=== PATIENT | female | born 1950 | race Caucasian/White ===

== ENCOUNTER 2023-04-24 06:10 | Inpatient (IN) | payer MEDICARE, OTHER, SELFPAY ==
--- NOTE | 2023-03-03 11:39 | CM ---
Addendum entered by Brandy Tate 03/31/23 11:54:
Patient's surgery date has been changed to 04/24/23.
Original Note:
Patient is scheduled for an elective R TKR on 04/03/23. Spoke with patient prior to surgery via telephone. Introduced role of Orthopedic Navigator. Patient reports that she lives alone in an apartment at [facility] (one floor, no steps to enter).
She currently functions independently and uses a cane. She has no other DME and has never had VN services. She does not drive and uses [employer] for transportation needs. PCP is Jorje Monzon.
Discussed orthopedic program and post surgical plans. Reviewed anticipated length of stay and that goal is for her to return home at discharge. Also reviewed outpatient PT. Patient is in agreement with tentative plan and states that her friend will
stay with her initially. She will not have transportation for outpatient PT and will need VN services initially.
Patient will complete online education.
Plan: Orthopedic Navigator will remain available to assist with the care of patient and will reassess discharge needs after surgery.
[2023-03-12 14:13] VITALS: BMI 33.2
[2023-03-12 14:28] LABS: Hematocrit 38.8 % (37.0-47.0); Hemoglobin 13.6 g/dL (12.0-16.0); Mean Corp Hgb Conc. 35.1 g/dL (33.0-37.0); Mean Corpuscular Hgb 31.3 pg (27.0-31.0); Mean Corpuscular Volume 89.4 fL (81.0-99.0); Mean Platelet Volume 10.4 fL (7.4-10.4); Platelet Count 219 10^3/uL (130-400); Red Blood Cell Count 4.34 10^6/uL (4.20-5.40); Red Cell Dist. Width 12.2 % (11.5-14.5); White Blood Cell Count 6.4 10^3/uL (4.8-10.8)
[2023-03-12 14:42] LABS: ALT (SGPT) 26 U/L (0-35); AST (SGOT) 30 U/L (14-36); Albumin 4.2 g/dl (3.5-5.0); Alkaline Phosphatase 78 U/L (38-126); Blood Urea Nitrogen 16 mg/dl (7-17); Carbon Dioxide 26 mmol/L (22-30); Chloride 106 mmol/L (98-107); Estimated Creatinine Clearance 74 ml/min; Glucose 102 mg/dl (70-99); Potassium 4.2 mmol/L (3.5-5.1); Sodium 135 mmol/L (135-145); Total Bilirubin 0.8 mg/dl (0.2-1.3); Total Protein 6.6 g/dl (6.3-8.2); eGFR > 60.00
[2023-03-12 15:49] VITALS: BMI 33.2
[2023-03-13 08:51] LABS: Glycohemoglobin (HgbA1c) 5.7 % (4.0-5.6)
--- NOTE | 2023-04-15 10:34 | W.PN.UPDATE ---
Update Note
Progress Note Update
BP 196/112--advised ER and stroke risk--she refused this option. Provided her with water and encouraged her to take her Clonidine but she again refused.
[2023-04-24] VITALS (21 sets, daily range): BP systolic 116–194; BP diastolic 64–106; PULSE 68–71; O2SAT 97; BMI 33.2
[2023-04-24] MEDS: TYLENOL 650 MG PO ×5 (06:36→23:01)
[2023-04-24] MEDS: NORMOSOL-R 1000 IV ×2 (06:36→09:45)
[2023-04-24] MEDS: CELEBREX 200 MG PO (06:36)
[2023-04-24] MEDS: ROXICODONE 5 MG PO (09:49)
[2023-04-24] MEDS: TYLENOL PO ×2 (12:31→15:09)
--- NOTE | 2023-04-24 12:34 | SUR.PHASEI ---
Lunch relief at 1535. Messi rico RN BSN.
[2023-04-24] MEDS: ANCEF 5 IV ×2 (14:45→22:53)
[2023-04-24] MEDS: ULTRAM PO (15:08)
--- NOTE | 2023-04-24 15:19 | W.PN.UPDATE ---
Update Note
Progress Note Update
Patient doing well postop. VSS. Has been OOB. Pain controlled. Pulm: nonlabored. CV: regular. RLE: NVI distally. Calf soft. Dressing with minimal drainage. Postop xray as expected. Plan for discharge tomorrow after PT with home PT. ASA
for DVT prophylaxis.
[2023-04-24] MEDS: ASPIRIN 325 MG PO (17:24)
[2023-04-24] MEDS: ULTRAM 50 MG PO ×2 (17:24→22:54)
--- NOTE | 2023-04-24 17:38 | PTCARENOTE ---
Received patient from PACU around 1315 via bed in stable condition. Patient oriented to unit. Neurovascular checks wnl. Pain controlled. VS stable. Call vincent in reach.
[2023-04-24] MEDS: COLACE 100 MG PO (19:30)
[2023-04-24] MEDS: BACTROBAN 2% OINTMENT 1 APPLIC NASAL (19:30)
[2023-04-24] MEDS: COREG 25 MG PO (19:31)
[2023-04-24] MEDS: TORADOL 15 MG IV (19:32)
[2023-04-24] MEDS: DECADRON 4 MG PO (19:33)
--- NOTE | 2023-04-24 19:55 | PTCARENOTE ---
Nurse did 1900 vitals.
[2023-04-24 21:18] LABS: Glucose - Point of Care 227 mg/dl (70-99)
[2023-04-24] MEDS: PEPCID 20 MG PO (22:54)
[2023-04-24] MEDS: NEURONTIN 300 MG PO (22:54)
--- NOTE | 2023-04-25 | PTCARENOTE ---
Nurse did 2300 vitals.
[2023-04-25 03:50] VITALS: BP 173/92
[2023-04-25] MEDS: TYLENOL PO (03:55)
[2023-04-25] MEDS: TORADOL 15 MG IV (07:13)
--- NOTE | 2023-04-25 07:13 | W.DS.TRANS ---
DC Summary - Sales Planning Analyst
-
Discharge Instructions:
Discharge Diagnosis/Procedures R TKA Dr. Rodriguez 04/24/23
Diet Diabetic, Carb Controlled
Activity With Walker
Driving Restrictions No driving
Bathing Restrictions OK to Shower
Other Services VN,PT
Instructions:
Stand-Alone Forms: Total Hip/Knee Replacement D/C
Changes to Home Medications: Yes
Discharge Medications:
DC Medications w/original date entered in [email or web address]
biotin 5,000 mcg chewable tablet 5,000 mcg PO DAILY Supplement 03/10/23
clonidine HCl 0.1 mg tablet 0.1 mg PO PRN PRN SBP>175 03/10/23
losartan 100 mg tablet 100 mg PO DAILY Blood Pressure 03/10/23
tgokzerfubfo-zwceamfh-vpvpqp tablet (Multivitamin 50 Plus tablet) 1 tab PO DAILY Supplement 03/10/23
naproxen sodium 220 mg tablet 220 mg PO DAILYPRN PRN pain 03/10/23
mupirocin 2 % topical ointment 1 applic intranasal BID #1 tube 03/12/23
carvedilol 25 mg tablet 25 mg PO BID Blood Pressure 04/10/23
acetaminophen 325 mg capsule (Tylenol) 650 mg PO QID #0 caps 04/25/23
aspirin 325 mg tablet 325 mg PO DAILY blood clot prevention #1 tab 04/25/23
celecoxib 200 mg capsule 200 mg PO DAILY anti-inflammatory #14 caps 04/25/23
dexamethasone 4 mg tablet 4 mg PO BID inflammation #6 tabs 04/25/23
docusate sodium 100 mg capsule (Colace) 100 mg PO BID stool softner #1 cap 04/25/23
famotidine 20 mg tablet 20 mg PO HS GI prophylaxis #30 tabs 04/25/23
gabapentin 300 mg capsule 300 mg PO HS sleep/pain #10 caps 04/25/23
magnesium hydroxide 400 mg/5 mL oral suspension (Milk of Magnesia) 30 ml PO HS PRN Constipation #1 mL 04/25/23
ondansetron 4 mg disintegrating tablet 4 mg PO Q6H PRN n/v #20 tabs 04/25/23
oxycodone 5 mg tablet 5 - 10 mg PO Q6HPRN PRN 1 tab moderate-2 tabs severe pain #30 tabs 04/25/23
sennosides 8.6 mg tablet (Senokot) 17.2 mg PO BID laxative #2 tabs 04/25/23
Home Medication Changes
aspirin 325 mg tablet 325 mg PO DAILY blood clot prevention #1 tab 04/25/23
celecoxib 200 mg capsule 200 mg PO DAILY anti-inflammatory #14 caps 04/25/23
dexamethasone 4 mg tablet 4 mg PO BID inflammation #6 tabs 04/25/23
famotidine 20 mg tablet 20 mg PO HS GI prophylaxis #30 tabs 04/25/23
gabapentin 300 mg capsule 300 mg PO HS sleep/pain #10 caps 04/25/23
ondansetron 4 mg disintegrating tablet 4 mg PO Q6H PRN n/v #20 tabs 04/25/23
oxycodone 5 mg tablet 5 - 10 mg PO Q6HPRN PRN 1 tab moderate-2 tabs severe pain #30 tabs 04/25/23
Pending Results: No
[2023-04-25] MEDS: COZAAR 75 MG PO (07:14)
[2023-04-25] MEDS: ULTRAM 50 MG PO (07:14)
[2023-04-25] MEDS: TYLENOL 650 MG PO ×2 (07:14→11:45)
[2023-04-25] MEDS: COLACE 100 MG PO (07:14)
[2023-04-25] MEDS: BACTROBAN 2% OINTMENT 1 APPLIC NASAL (07:15)
[2023-04-25] MEDS: CELEBREX 200 MG PO (07:15)
[2023-04-25] MEDS: DECADRON 4 MG PO (07:15)
[2023-04-25] MEDS: ASPIRIN 325 MG PO (07:15)
[2023-04-25] MEDS: COREG 25 MG PO (07:15)
[2023-04-25 07:19] VITALS: BP 161/74
--- NOTE | 2023-04-25 07:29 | W.PN.ORTHO ---
Today's Communication / Plan
-
Plan for discharge home after PT with home PT
Assessment
.
Distal Motor Intact: Yes
Dressing:
Clean, dry and intact.
Assessment:
Doing well postop
Plan
.
Surgery / Date: 04/24/23 right TKA Jennifer
DVT Prophylaxis: Aspirin
Activity:
Out of bed.
PT/OT
Discharge Plan: Home w/ VN
Subjective
.
.:
Patient resting comfortably. Was OOB yesterday. Pain controlled
Vital Signs and Labs
.
Vital Signs and Labs:
Lab Results
03/12/23 13:57
03/12/23 13:57
Temp Pulse Resp BP Pulse Ox
97.8 F 79 18 161/74 96
04/25/23 07:19 04/25/23 07:19 04/25/23 07:19 04/25/23 07:19 04/25/23 07:19
Non-invasive Hgb result: 12.9
Physical Exam
-
Pulm: nonlabored
CV: regular
RLE: able to fully extend right knee. Flexion to 80 degrees. NVI distally. calf soft
[2023-04-25 08:30] VITALS: BP 152/86
--- NOTE | 2023-04-25 08:39 | CM ---
Addendum entered by Brandy Tate 04/25/23 10:00:
Patient did well in therapy. OT is recommending home OT. Discussed with patient who is in agreement. She has no concerns about going home.
VN referral updated with addition of OT and sent to [facility] through [facility].
Original Note:
Reviewed chart and held rounds with PT, OT and nursing. Patient admitted as planned for elective R TKR. Met with patient at bedside. Confirmed information previously obtained for assessment. Also discussed discharge plans. The plan is for patient to
return home at discharge. She will have support from her friends when she goes home but no one will stay with her. She plans to use [employer] to go home (a friend will come to the hospital and ride home with her). Reviewed VN services including start of
care (tentatively 04/25), services to be ordered (PT, SN) and frequency/duration of services. Options list provided and PAC data reviewed. Patient selects [facility].
Patient has a rolling walker, commode and a cane at home.
VN referral was completed and sent to [facility] through [facility] with request for start of care on 04/25. Confirmation received of their ability to accept case. production clerk to fax discharge instructions to [facility] when complete.
Patient will use [facility] pharmacy for discharge prescriptions.
[2023-04-25 09:43] VITALS: BP 145/72; PULSE 70; O2SAT 93
--- NOTE | 2023-04-25 10:32 | W.PN.ORTHO ---
Today's Communication / Plan
-
d/c
Assessment
.
Distal Motor Intact: Yes
Dressing:
Clean, dry and intact.
Assessment:
HTN-accelerated pre and post-op--improved with med adjustments
Plan
.
Surgery / Date: 04/24/23 right TKA Jennifer
DVT Prophylaxis: Aspirin
Activity:
Out of bed.
PT/OT
Discharge Plan: Home w/ VN
Subjective
.
.:
Patient resting comfortably.
Vital Signs and Labs
.
Vital Signs and Labs:
Lab Results
03/12/23 13:57
03/12/23 13:57
Temp Pulse Resp BP Pulse Ox
97.8 F 74 18 152/86 96
04/25/23 07:19 04/25/23 08:30 04/25/23 07:19 04/25/23 08:30 04/25/23 07:19
Non-invasive Hgb result: 12.9
Physical Exam
-
ABDOMEN: Soft, non-tender. No distension. BS+/normal.
EXTREMITIES: strength equal, no calf pain with palpation
PALEOLOGY PROFESSOR: AOx3. No focal deficits. custodian athletic equipment grossly intact
Aquacell intact. dry
== END 2023-04-25 12:59 | disposition home health service (06) | DRG 470 ==
LOC: 2 SOUTH 06:10
PROVIDERS: ADMITTING PHYSICIAN Orthopaedic Surgery; FAMILY PHYSICIAN Nurse Practitioner Adult Health; REFERRING PHYSICIAN Physician Assistant
PROC: 0SRC0J9 Replacement of Right Knee Joint with Synthetic Substitute, Cemented, Open Approach (ICD-10-PCS; 2023-04-24)
DX: M17.11 Unilateral primary osteoarthritis, right knee (principal); I10 Essential (primary) hypertension; E66.9 Obesity, unspecified; E78.5 Hyperlipidemia, unspecified; G47.33 Obstructive sleep apnea (adult) (pediatric); R73.03 Prediabetes; M85.80 Other specified disorders of bone density and structure, unspecified site; Z79.82 Long term (current) use of aspirin; Z91.148 Patient's other noncompliance with medication regimen for other reason; Z68.33 Body mass index [BMI] 33.0-33.9, adult; Z91.199 Patient's noncompliance with other medical treatment and regimen due to unspecified reason; Z87.891 Personal history of nicotine dependence
CPT/HCPCS: 36415; 73560; 80053; 82962; 83036; 85027; 87070; 93005; 97110; 97116; 97162; 97166; 97530; 97535; C1713; C1776

== ENCOUNTER → 2023-05-28 14:39 | Outpatient (REF) | payer MEDICARE, BC, SELFPAY | LOC: DHCBS MAIN 14:39 | PROVIDERS: ATTENDING PHYSICIAN Internal Medicine Interventional Cardiology; FAMILY PHYSICIAN Nurse Practitioner Adult Health | DX: I10 Essential (primary) hypertension (principal) | CPT/HCPCS: 93306 ==

== ENCOUNTER 2023-06-10 09:27 | Outpatient (RCR) | payer MEDICARE, OTHER, SELFPAY | END 2023-06-10 23:59 | disposition home or self-care (01) | LOC: RPT 09:27 | PROVIDERS: ATTENDING PHYSICIAN Student in an Organized Health Care Education/Training Program; FAMILY PHYSICIAN Nurse Practitioner Adult Health | DX: Z47.1 Aftercare following joint replacement surgery (principal); Z73.6 Limitation of activities due to disability; R26.89 Other abnormalities of gait and mobility; Z96.651 Presence of right artificial knee joint | CPT/HCPCS: 97010; 97110; 97161 ==

== ENCOUNTER → 2023-06-11 09:14 | Outpatient (REF) | payer MEDICARE, OTHER, SELFPAY ==
[2023-06-11 11:05] LABS: Glycohemoglobin (HgbA1c) 5.5 % (4.0-5.6)
[2023-06-11 13:36] LABS: ALT (SGPT) 15 U/L (0-35); AST (SGOT) 23 U/L (14-36); Albumin 4.2 g/dl (3.5-5.0); Alkaline Phosphatase 64 U/L (38-126); Blood Urea Nitrogen 16 mg/dl (7-17); Calcium 9.5 mg/dl (8.4-10.2); Carbon Dioxide 25 mmol/L (22-30); Chloride 103 mmol/L (98-107); Glucose 96 mg/dl (70-99); HDL Cholesterol 91 mg/dl; LDL Cholesterol, Calculated 102 mg/dl; Sodium 136 mmol/L (135-145); Total Bilirubin 1.1 mg/dl (0.2-1.3); Total Cholesterol 214 mg/dl (50-199); Total Protein 6.5 g/dl (6.3-8.2); Triglyceride 105 mg/dl (10-149); Very Low Density Lipoprotein 21 mg/dl (0-30); eGFR > 60.00
== END ==
LOC: REG 09:14
PROVIDERS: ATTENDING PHYSICIAN Nurse Practitioner Adult Health
DX: E78.2 Mixed hyperlipidemia (principal); R73.03 Prediabetes; Z01.818 Encounter for other preprocedural examination
CPT/HCPCS: 36415; 80053; 80061; 83036

== ENCOUNTER 2023-06-27 09:16 | Outpatient (RCR) | payer MEDICARE, OTHER, SELFPAY | END 2023-06-27 10:40 | disposition home or self-care (01) | LOC: RPT 09:16 | PROVIDERS: ATTENDING PHYSICIAN Student in an Organized Health Care Education/Training Program; FAMILY PHYSICIAN Nurse Practitioner Adult Health | DX: Z47.89 Encounter for other orthopedic aftercare (principal); Z96.651 Presence of right artificial knee joint; M26.89 Other dentofacial anomalies; Z73.6 Limitation of activities due to disability | CPT/HCPCS: 97010; 97110 ==

== ENCOUNTER → 2023-10-15 09:11 | Outpatient (REF) | payer MEDICARE, OTHER, SELFPAY ==
[2023-10-15 12:00] LABS: ALT (SGPT) 20 U/L (0-35); AST (SGOT) 27 U/L (14-36); Albumin 4.6 g/dl (3.5-5.0); Alkaline Phosphatase 72 U/L (38-126); Blood Urea Nitrogen 13 mg/dl (7-17); Calcium 9.8 mg/dl (8.4-10.2); Carbon Dioxide 24 mmol/L (22-30); Chloride 101 mmol/L (98-107); Glucose 108 mg/dl (70-99); HDL Cholesterol 101 mg/dl; LDL Cholesterol, Calculated 136 mg/dl; Potassium 4.1 mmol/L (3.5-5.1); Sodium 141 mmol/L (135-145); Total Bilirubin 1.1 mg/dl (0.2-1.3); Total Cholesterol 255 mg/dl (50-199); Triglyceride 92 mg/dl (10-149); Very Low Density Lipoprotein 18 mg/dl (0-30); eGFR > 60.00
[2023-10-15 12:41] LABS: Glycohemoglobin (HgbA1c) 5.2 % (4.0-5.6)
== END ==
LOC: REG 09:11
PROVIDERS: ATTENDING PHYSICIAN Nurse Practitioner Adult Health
DX: E78.2 Mixed hyperlipidemia (principal); R73.03 Prediabetes
CPT/HCPCS: 36415; 80053; 80061; 83036

== ENCOUNTER → 2023-11-04 10:11 | Outpatient (REF) | payer MEDICARE, OTHER, SELFPAY | LOC: RAD 10:11 | PROVIDERS: ATTENDING PHYSICIAN Internal Medicine Critical Care Medicine | DX: J90 Pleural effusion, not elsewhere classified (principal) | CPT/HCPCS: 71046 ==

== ENCOUNTER → 2024-04-06 09:26 | Outpatient (REF) | payer MEDICARE, OTHER, SELFPAY | LOC: REG 09:26 | PROVIDERS: ATTENDING PHYSICIAN Podiatrist Foot & Ankle Surgery; FAMILY PHYSICIAN Nurse Practitioner Adult Health | DX: M19.071 Primary osteoarthritis, right ankle and foot (principal); M19.072 Primary osteoarthritis, left ankle and foot | CPT/HCPCS: 73630 ==

== ENCOUNTER → 2024-05-13 10:32 | Outpatient (REF) | payer MEDICARE, OTHER, SELFPAY ==
[2024-05-13 12:01] LABS: ALT (SGPT) 28 U/L (0-35); AST (SGOT) 27 U/L (14-36); Albumin 4.2 g/dl (3.5-5.0); Alkaline Phosphatase 81 U/L (38-126); Blood Urea Nitrogen 14 mg/dl (7-17); Calcium 9.6 mg/dl (8.4-10.2); Carbon Dioxide 27 mmol/L (22-30); Chloride 105 mmol/L (98-107); Glucose 109 mg/dl (70-99); HDL Cholesterol 104 mg/dl; LDL Cholesterol, Calculated 121 mg/dl; Potassium 3.9 mmol/L (3.5-5.1); Sodium 140 mmol/L (135-145); Total Cholesterol 249 mg/dl (50-199); Total Protein 6.6 g/dl (6.3-8.2); Triglyceride 122 mg/dl (10-149); Very Low Density Lipoprotein 24 mg/dl (0-30); eGFR > 60.00
[2024-05-13 12:13] LABS: Glycohemoglobin (HgbA1c) 5.3 % (4.0-5.6)
== END ==
LOC: REG 10:32
PROVIDERS: ATTENDING PHYSICIAN Nurse Practitioner Adult Health
DX: Z00.00 Encounter for general adult medical examination without abnormal findings (principal); E78.2 Mixed hyperlipidemia; R73.03 Prediabetes; I10 Essential (primary) hypertension
CPT/HCPCS: 36415; 80053; 80061; 83036

== ENCOUNTER → 2024-07-14 14:15 | Outpatient (REF) | payer MEDICARE, OTHER, SELFPAY | LOC: WDC 14:15 | PROVIDERS: ATTENDING PHYSICIAN Nurse Practitioner Adult Health | DX: Z78.0 Asymptomatic menopausal state (principal); Z12.31 Encounter for screening mammogram for malignant neoplasm of breast | CPT/HCPCS: 77063; 77067; 77080 ==

== ENCOUNTER → 2024-11-24 09:19 | Outpatient (REF) | payer MEDICARE, OTHER, SELFPAY | LOC: RCS 09:19 | PROVIDERS: ATTENDING PHYSICIAN Internal Medicine Interventional Cardiology; FAMILY PHYSICIAN Nurse Practitioner Adult Health | DX: I10 Essential (primary) hypertension (principal); I27.20 Pulmonary hypertension, unspecified | CPT/HCPCS: 93306 ==

== ENCOUNTER → 2024-11-29 10:20 | Outpatient (REF) | payer MEDICARE, OTHER, SELFPAY ==
[2024-11-29 12:58] LABS: ALT (SGPT) 24 U/L (0-35); AST (SGOT) 26 U/L (14-36); Albumin 4.6 g/dl (3.5-5.0); Alkaline Phosphatase 83 U/L (38-126); Blood Urea Nitrogen 13 mg/dl (7-17); Calcium 9.6 mg/dl (8.4-10.2); Carbon Dioxide 27 mmol/L (22-30); Chloride 105 mmol/L (98-107); Glucose 103 mg/dl (70-99); Potassium 4.2 mmol/L (3.5-5.1); Sodium 136 mmol/L (135-145); Total Protein 7.5 g/dl (6.3-8.2); Very Low Density Lipoprotein 22 mg/dl (0-30); eGFR > 60.00
[2024-11-29 13:18] LABS: HDL Cholesterol 104 mg/dl; LDL Cholesterol, Calculated 117 mg/dl
[2024-11-29 13:55] LABS: Glycohemoglobin (HgbA1c) 5.3 % (4.0-5.6)
== END ==
LOC: REG 10:20
PROVIDERS: ATTENDING PHYSICIAN Nurse Practitioner Adult Health
DX: I10 Essential (primary) hypertension (principal); E78.2 Mixed hyperlipidemia; R73.03 Prediabetes
CPT/HCPCS: 36415; 80053; 80061; 83036

== ENCOUNTER → 2024-12-10 10:26 | Outpatient (REF) | payer MEDICARE, OTHER, SELFPAY | LOC: RAD 10:26 | PROVIDERS: ATTENDING PHYSICIAN Nurse Practitioner Adult Health | DX: M25.542 Pain in joints of left hand (principal); M25.541 Pain in joints of right hand | CPT/HCPCS: 73130 ==

== ENCOUNTER → 2025-01-14 10:21 | Outpatient (REF) | payer MEDICARE, OTHER, SELFPAY | LOC: DHVS 10:21 | PROVIDERS: ATTENDING PHYSICIAN Nurse Practitioner Adult Health | DX: R60.0 Localized edema (principal) | CPT/HCPCS: 93970 ==